=== PATIENT | female | born 1990 | race Caucasian/White ===

== ENCOUNTER → 2023-02-18 14:17 | Outpatient (BNVA) | payer OTHER, SELFPAY | PROVIDERS: PCP Hospitalist; Visit Provider Surgery ==

== ENCOUNTER 2023-02-18 15:36 | Outpatient (REF) | payer OTHER, SELFPAY | END 2023-02-18 15:37 | disposition home or self-care (01) | LOC: HO.LAB 15:36 | PROVIDERS: Visit Provider Surgery | DX: E11.22 Type 2 diabetes mellitus with diabetic chronic kidney disease (principal); N18.4 Chronic kidney disease, stage 4 (severe); N25.0 Renal osteodystrophy; F90.9 Attention-deficit hyperactivity disorder, unspecified type | CPT/HCPCS: 36415; 80053; 83036; 84134; 84443; 85025; 86140 ==

== ENCOUNTER 2023-03-08 14:46 | Outpatient (AMB) | payer OTHER, SELFPAY ==
--- NOTE | 2023-03-08 14:51 | A.OFFVIS_ITS ---
Intake VS Expanded 03/08/23 14:56 Height 5 ft 8 in Weight 241 lb 12.8 oz BMI 36.8 BP 131/61 Blood Pressure Location Rt brachial Blood Pressure Position Sitting Pulse 74 Pulse Source Pulse Oximeter Temp 96.7 F L Temperature Source Temporal Artery Scan Pulse Oximetry 98 Oxygen Delivery Method Room Air Body Fat 101.0 Body Fat Percentage 41.8 Free Fat Mass 140.6 Muscle Mass 133.6 Visceral Mass 9.0 Water Mass 101.0 BMR 1,985 Intake Visit Reasons: (OV) F/U Gastric Balloon Switch to SWL Allergies aspirin [ASPIRIN] Allergy (Unknown, Verified 03/08/23 14:54) UNKNOWN, bleeding HPI HPI Comments History of Present Illness Details The pt is a 32y woman who presents with a weight of 242.4/BMI 36.8 who reports a lifelong struggle with of obesity that got significantly worse after age 21. She was initially interested in gastric balloon, but ultimately decided to reenter the [facility] & is interested in LSG. Patient notes she was around 180 to 190 lb in high school, but after becoming , her weight increased to 285 lb wall and she was only able to drop down to about 270, . At previous visit with her PCP on 05/03/2022, she was 258 lb/BMI 39.2. The patient notes that she just lost her grandmother, who raised her, due to cirrhosis and diabetes related complications. Cirrhosis was due to fatty liver disease and diabetes, so the patient is 100% committed to entering the surgical weight loss program and is interested in sleeve gastrectomy. She lives with her daughter who is 2 years, 8 months. 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 She presents today at 241.8lbs/BMI 36.7. The patient states that she was told in high school that she had diabetes, so she assumed that it was type 1. However, she notes that she was never treated with insulin and his stopped following this health problem and did not disclose it to her PCP. Past surgical history includes an open appendectomy that was done in [place] Family history includes hypertension, type 2 diabetes and coronary artery disease; she is unaware of any history of malignancy, inflammatory bowel disease. GERD 0 ESS 0 QOL 113 JAYCE 5 Preop workup: [facility] classes X/[address] Labs see results H. pylori pending CXR pending Abd U/S pending UGI pending [facility] Surgical History Hx of appendectomy Family History Mother Hypertension Heart disease Maternal Grandmother Heart disease Social History Household Members: Children Household Members Other:: daughter Housing: House (duplex) Alcohol intake: current Alcohol intake frequency: holidays/special occasions only Patient Tobacco Use Status: Never used Tobacco e-Cigarette/Vaping Use: Never Used Current occupational status: employed Current occupation: [employer] coordinator Review of Systems Const All systems reviewed & are unremarkable except as noted in HPI and below Reports as per HPI Physical Exam On exam she is in good spirits She is anicteric She is in no acute respiratory distress Abdomen is obese & NT; and her right lower quadrant incision is well healed with no hernia that are obvious Results Reviewed Results Reviewed: labs 02/18/23 Hb 13.7, normal indices Plts 170K, wbc 4.8 Lytes WNL, BUN 14, Cr 0.84 LFTs WNL HbA1C 4.8 TSH WNL Prealbumin 26.0 Fasting labs pending diagnostic imaging pending Assessment & Plan Assessment & Plan (1) BMI 39.0-39.9,adult: Code(s): Z68.39 - Body mass index [BMI] 39.0-39.9, adult (2) Attention Deficit Hyperactivity Disorder (ADHD): Code(s): F90.9 - Attention-deficit hyperactivity disorder, unspecified type (3) DMII (diabetes mellitus, type 2): Code(s): E11.9 - Type 2 diabetes mellitus without complications Plan The patient expressed concerns regarding her grandmother's services and obesity, type 2 diabetes and vascular disease. She notes that there is a family history of obesity in her mother has cardiac and vascular issues so she would like to proceed with surgical weight loss. Handouts disclosing the importance of lean protein, high-fiber diet and removing carbohydrates and sugar sweetened beverages were reviewed. The ultimate goal of following the Mediterranean diet for an during weight loss after sleeve gastrectomy was discussed and her questions seemed to be satisfactorily answered. I reviewed the nonfasting labs from the last visit and was pleased to inform the patient that she does not seem to have either juvenile or adult onset diabetes since her hemoglobin A1c is 4.8. She had some concerns regarding her grandmother's from cirrhosis related to type 2 diabetes and obesity and, the patient's LFTs are normal. See orders; patient will follow-up with me 2-3 weeks after a [place] visit and will write down any questions that she has. Orders: Orders Vitamin B12 and Folate Today E11.9 - Type 2 diabetes mellitus without complications, F90.9 - Attention-deficit hyperactivity disorder, unspecified type, Z00.00 - Encounter for general adult medical examination without abnormal findings, Z68.39 - Body mass index [BMI] 39.0-39.9, adult Ferritin Today E11.9 - Type 2 diabetes mellitus without complications, F90.9 - Attention-deficit hyperactivity disorder, unspecified type, Z00.00 - Encounter for general adult medical examination without abnormal findings, Z68.39 - Body mass index [BMI] 39.0-39.9, adult IRON PROFILE Today E11.9 - Type 2 diabetes mellitus without complications, F90.9 - Attention-deficit hyperactivity disorder, unspecified type, Z00.00 - Encounter for general adult medical examination without abnormal findings, Z68.39 - Body mass index [BMI] 39.0-39.9, adult Lipid Panel Today E11.9 - Type 2 diabetes mellitus without complications, F90.9 - Attention-deficit hyperactivity disorder, unspecified type, Z00.00 - Encounter for general adult medical examination without abnormal findings, Z68.39 - Body mass index [BMI] 39.0-39.9, adult PTHI Today E11.9 - Type 2 diabetes mellitus without complications, F90.9 - Attention-deficit hyperactivity disorder, unspecified type, Z00.00 - Encounter for general adult medical examination without abnormal findings, Z68.39 - Body mass index [BMI] 39.0-39.9, adult Vitamin A Today E11.9 - Type 2 diabetes mellitus without complications, F90.9 - Attention-deficit hyperactivity disorder, unspecified type, Z00.00 - Encounter for general adult medical examination without abnormal findings, Z68.39 - Body mass index [BMI] 39.0-39.9, adult Vitamin B1 Today E11.9 - Type 2 diabetes mellitus without complications, F90.9 - Attention-deficit hyperactivity disorder, unspecified type, Z00.00 - Encounter for general adult medical examination without abnormal findings, Z68.39 - Body mass index [BMI] 39.0-39.9, adult Vitamin D 25-OH Total Today E11.9 - Type 2 diabetes mellitus without complications, F90.9 - Attention-deficit hyperactivity disorder, unspecified type, Z00.00 - Encounter for general adult medical examination without abnormal findings, Z68.39 - Body mass index [BMI] 39.0-39.9, adult Zinc Today E11.9 - Type 2 diabetes mellitus without complications, F90.9 - Atte ntion-deficit hyperactivity disorder, unspecified type, Z00.00 - Encounter for general adult medical examination without abnormal findings, Z68.39 - Body mass index [BMI] 39.0-39.9, adult ECG 12 lead EKG Today E11.9 - Type 2 diabetes mellitus without complications, F90.9 - Attention-deficit hyperactivity disorder, unspecified type, Z00.00 - Encounter for general adult medical examination without abnormal findings, Z68.39 - Body mass index [BMI] 39.0-39.9, adult FL upper GI w air Today E11.9 - Type 2 diabetes mellitus without complications, F90.9 - Attention-deficit hyperactivity disorder, unspecified type, Z00.00 - Encounter for general adult medical examination without abnormal findings, Z68.39 - Body mass index [BMI] 39.0-39.9, adult H Pylori Breath Test Today E11.9 - Type 2 diabetes mellitus without complications, F90.9 - Attention-deficit hyperactivity disorder, unspecified type, Z00.00 - Encounter for general adult medical examination without abnormal findings, Z68.39 - Body mass index [BMI] 39.0-39.9, adult US abdomen comp w elastography Today E11.9 - Type 2 diabetes mellitus without complications, F90.9 - Attention-deficit hyperactivity disorder, unspecified type, Z00.00 - Encounter for general adult medical examination without abnormal findings, Z68.39 - Body mass index [BMI] 39.0-39.9, adult XR chest 2V Today E11.9 - Type 2 diabetes mellitus without complications, F90.9 - Attention-deficit hyperactivity disorder, unspecified type, Z00.00 - Encounter for general adult medical examination without abnormal findings, Z68.39 - Body mass index [BMI] 39.0-39.9, adult Referrals Behavioral Health Referral E11.9 - Type 2 diabetes mellitus without complications, F90.9 - Attention-deficit hyperactivity disorder, unspecified type, Z68.39 - Body mass index [BMI] 39.0-39.9, adult Nutrition/Dietitian Referral E11.9 - Type 2 diabetes mellitus without complications, F90.9 - Attention-deficit hyperactivity disorder, unspecified type, Z68.39 - Body mass index [BMI] 39.0-39.9, adult Coding Level of Care Code Est Pt Level 4 (76127) Diagnoses BMI 39.0-39.9,adult Z68.39 Attention Deficit Hyperactivity Disorder (ADHD) F90.9 DMII (diabetes mellitus, type 2) E11.9
[2023-03-08 14:56] VITALS: BP 131/61; PULSE 74; TEMP 35.9; O2SAT 98; BMI 36.8
== END 2023-03-08 15:30 | disposition home or self-care (01) ==
LOC: HO.HBS 14:46
PROVIDERS: PCP Hospitalist; Visit Provider Surgery
DX: E66.09 Other obesity due to excess calories (principal); Z68.36 Body mass index [BMI] 36.0-36.9, adult; F90.9 Attention-deficit hyperactivity disorder, unspecified type; E11.9 Type 2 diabetes mellitus without complications
CPT/HCPCS: 99214

== ENCOUNTER → 2023-03-08 14:46 | Outpatient (BNVA) | payer OTHER, SELFPAY | PROVIDERS: PCP Hospitalist; Visit Provider Surgery | DX: Z68.39 Body mass index [BMI] 39.0-39.9, adult (principal); E11.9 Type 2 diabetes mellitus without complications; F90.9 Attention-deficit hyperactivity disorder, unspecified type; Z00.00 Encounter for general adult medical examination without abnormal findings ==

== ENCOUNTER 2023-03-19 14:30 | Outpatient (REF) | payer OTHER, SELFPAY ==
[2023-03-19 15:26] LABS: MANUAL DIFF FLAG NO
--- NOTE | 2023-03-19 15:26 | ECG_ITS ---
Test Reason : OBESITY Blood Pressure : / mmHG Vent. Rate : 068 BPM Atrial Rate : 068 BPM P-R Int : 188 ms QRS Dur : 074 ms QT Int : 402 ms P-R-T Axes : 073 036 035 degrees QTc Int : 427 ms Normal sinus rhythm with sinus arrhythmia Normal ECG No previous ECGs available Referred By: Eric Dhaliwal Electronically Signed By:AKBAR PURCELL
[2023-03-19 17:58] LABS: Basophils Percent Auto 0.7 % (0-2); Eosinophils Absolute Auto 0.1 X10*3/uL (0.0-0.4); Eosinophils Percent Auto 2.7 % (0-4); Hematocrit 41.4 % (37.0-47.0); Hemoglobin 13.5 g/dl (12.0-16.0); Imm Gran Abs Auto 0.01 X10*3/uL (0.00-0.03); Imm Gran Pct Auto 0.2 % (0.0-0.4); Lymphocytes Absolute Auto 2.4 X10*3/uL (1.2-4.9); Lymphocytes Percent Auto 54.4 % (20-40); Mean Corpuscular HGB Conc 32.6 g/dl (31.0-35.0); Mean Corpuscular Hemoglobin 28.4 pg (27.0-33.0); Mean Corpuscular Volume 87.2 fL (80.0-98.0); Mean Platelet Volume 12.3 fL (9.4-12.3); Monocytes Absolute Auto 0.2 X10*3/uL (0.1-1.2); Neutrophils Absolute Auto 1.6 x10*3/uL (2.0-8.3); Platelet Count 208 X10*3/uL (160-400); Red Blood Count 4.75 X10*6/uL (4.20-5.50); Red Cell Distribution Width 12.3 % (11.0-16.0); White Blood Count 4.4 X10*3/uL (4.8-10.8)
[2023-03-19 18:50] LABS: Alanine Aminotransferase 13 U/L (0-31); Albumin Level 4.1 g/dL (3.5-5.0); Alkaline Phosphatase 60 U/L (39-117); Anion Gap 15 (12-20); Aspartate Amino Transferase 13 U/L (5-31); Bilirubin Total 0.6 mg/dL (0.0-1.0); Blood Urea Nitrogen 10 mg/dL (9-16); C Reactive Protein 0.86 mg/dL (< or = 0.50); Calcium 9.3 mg/dL (8.4-10.2); Carbon Dioxide 20 mmol/L (22-29); Chloride 110 mmol/L (96-108); Cholesterol 193 mg/dL; Estimated Glomerular Filt Rate > 60; Glucose Random 69 mg/dL (60-115); HDL Cholesterol 42 mg/dL; Iron 79 mcg/dL (30-160); LDL Cholesterol Calculated 141 mg/dl; Percent Iron Saturation 29 % (15-50); Potassium 3.8 mmol/L (3.3-5.1); Sodium 141 mmol/L (135-145); Total Iron Binding Capacity 268 mcg/dL (228-428); Total Protein 7.2 g/dL (6.5-8.0); Triglycerides 52 mg/dL; Unsaturated Iron Binding 189 ug/dL
[2023-03-19 19:03] LABS: Folate 11.7 ng/mL (> or = 4.0); Vitamin B12 345 pg/mL (200-900)
[2023-03-19 19:07] LABS: Ferritin 54 ng/mL (10-122); TSH reflex Free T4 0.82 uIU/mL (0.32-4.0); Vitamin D 25-OH Total 21.9 ng/mL (>30)
[2023-03-20 05:21] LABS: Estimated Average Glucose 88 mg/dL; Hemoglobin A1c % 4.7 %
[2023-03-22 19:38] LABS: Calcium (PTHI) 8.9 mg/dL (8.6-10.2); PTHI 50 pg/mL (16-77)
[2023-03-25 12:13] LABS: Vitamin B1 9 nmol/L (8-30)
[2023-03-26 03:38] LABS: Vitamin A 41 mcg/dL (38-98)
== END 2023-03-19 14:31 | disposition home or self-care (01) ==
LOC: HO.LAB 14:30
PROVIDERS: Absent Provider Surgery; PCP Hospitalist; Visit Provider Counselor Mental Health
DX: F90.9 Attention-deficit hyperactivity disorder, unspecified type (principal); F43.20 Adjustment disorder, unspecified; E11.9 Type 2 diabetes mellitus without complications; Z00.00 Encounter for general adult medical examination without abnormal findings
CPT/HCPCS: 36415; 80053; 80061; 82306; 82607; 82728; 82746; 83036; 83540; 83970; 84134; 84425; 84443; 84590; 84630; 85025; 86140; 93005

== ENCOUNTER 2023-03-19 14:30 | Outpatient (AMB) | payer OTHER, SELFPAY ==
--- NOTE | 2023-03-19 14:40 | MHC.WMTHER ---
Intake Intake Visit Reasons: VIDEO Intake Allergies aspirin [ASPIRIN] Allergy (Unknown, Verified 03/08/23 14:54) UNKNOWN, bleeding PFSH Surgical History Hx of appendectomy Family History Mother Hypertension Heart disease Maternal Grandmother Heart disease Social History Household Members: Children Household Members Other:: daughter Housing: House (duplex) Alcohol intake: current Alcohol intake frequency: holidays/special occasions only Patient Tobacco Use Status: Never used Tobacco e-Cigarette/Vaping Use: Never Used Current occupational status: employed Current occupation: [employer] coordinator Behavioral Health Assessment Weight Management Therapy Therapy Notes Details Patient is looking to have weight loss surgery to help improve her health and quality of life. She started to be concerned about her health after her grandmother last month from diabetes complications. Pt was in therapy last year when she was going through a divorce but not currently. She has never been in medication or had issues with drugs or alcohol in the past. She has no history of inpatient psychiatric admissions or eating disorder diagnosis. Presenting Concerns Referral Source provider Reason for referral weight loss surgery evaluation Precipitating Event obesity Living Situation Current Living Situation Rent At risk of losing current housing? No Satisfied with current living situation? Yes Comments Pt lives with her alone with her 2 year old daughter. Food/Weight/Diet Expectations of change weight loss and maintenance History/Relationship with food Pt stated that she does not eat all day until 430 or 5 and then will snack until 9pm. She stated she would eat rice and beans everyday. History/Relationship with weight Pt stated that her weight started to become problematic after she gave . She was slightly overweight prior but then her weight was in the obese category. History/Relationship with dieting fasting, keto, low carb, smaller portions, lost 20lbs when she got and got down to 190lbs. exercise routine Binge Eating Do you frequently eat large amounts of food in short periods of time, not feeling physically hungry? No Do you feel out of control when you eat a large amount of food in a short period of time? No Do you eat large amounts of food rapidly and typically alone? Yes Night Eating Do you wake up at least once during the night to eat? No If you wake up in the night, do you find that it is necessary to eat something in order to fall back asleep? No Do you have little or no appetite in the morning and feel very hungry in the evening, often overeating between dinner and when you go to bed? Yes Social History Family history and relationship Pt was born and raised in [place] by her two mothers, she has siblings but not raised in her home. She stated that her mother came from to [place] and at times she was raised by her grandmother. Patient is and has a two year that she co parents with her ex . Parental/Familial frit mixer obligations 2 year old daughter Developmental history and status no issues Social support sister, mother Cultural/Ethnic information [place] and [place] Legal Involvement and History Current or historical involvement with the legal system? none Education Highest grade completed some college Preferred learning style Auditory, Verbal, Written, Learn by doing and Visual Currently enrolled in educational program? No Interested in further educational program? 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 No Financial Situation Describe current financial situation Comfortable Financial assistance? None Service Service? No Mental Health and Addiction Treatment Current/Past substance abuse? No Current/Past addictive behavior concerns? No Medical and Physical Health Summary Physical exam in the last year? No Pain Screening Current pain? No Medications Is the patient compliant with medications? Yes Does the patient have Blue Guardian in place? Not applicable Does the patient use complimentary health approaches? Yes Trauma/Abuse History History of trauma? Yes Assessment & Plan Assessment & Plan (1) Adjustment disorder, unspecified: Code(s): F43.20 - Adjustment disorder, unspecified (2) BMI 39.0-39.9,adult: Code(s): Z68.39 - Body mass index [BMI] 39.0-39.9, adult Plan Pt reported no significant mental health issues or disordered eating. She reported doing well at this time and will reach out as needed for additional support. She is cleared for surgery when ready. Telehealth Telehealth Location of provider rendering services: other Location of patient: other Patient Identification confirmed using: Name, : Yes Telehealth method: voice only (Patient showed up in office thinking this appt was in person. ) Patient verbally consented to treatment: Yes Patient verbally consented to billing insurance company: Yes Patient informed of any privacy concerns related to visit: Yes Minutes spent on Phone/Video with Pt.: 45 Coding Level of Care Code Tele Psy Diag Valerieal ([id number]) Diagnoses Adjustment disorder, unspecified F43.20 BMI 39.0-39.9,adult Z68.39 Time Spent (min) 45
== END 2023-03-19 15:06 | disposition home or self-care (01) ==
LOC: HO.HBST 14:58
PROVIDERS: PCP Hospitalist; Visit Provider Counselor Mental Health
DX: F43.20 Adjustment disorder, unspecified (principal); Z68.39 Body mass index [BMI] 39.0-39.9, adult
CPT/HCPCS: 90791

== ENCOUNTER → 2023-03-19 15:26 | Outpatient (BNV) | payer OTHER, SELFPAY | PROVIDERS: Absent Provider Surgery; PCP Hospitalist; Visit Provider Internal Medicine | DX: E66.9 Obesity, unspecified (principal); F43.20 Adjustment disorder, unspecified | CPT/HCPCS: 93010 ==

== ENCOUNTER 2023-04-02 13:49 | Outpatient (AMB) | payer OTHER, SELFPAY ==
--- NOTE | 2023-04-02 13:49 | A.OFFVIS_ITS ---
Intake Intake Visit Reasons: VIDEO F/U [facility] Supervisor General Required: No Allergies aspirin [ASPIRIN] Allergy (Unknown, Verified 03/08/23 14:54) UNKNOWN, bleeding HPI HPI Comments History of Present Illness Details Telehealth Location of provider rendering services: practice address [address], [place] Location of patient: address on file Patient Identification confirmed using: Name, : Yes Telehealth method: video Patient verbally consented to treatment: Yes Patient verbally consented to billing insurance company: Yes Patient informed of any privacy concerns related to visit: Yes The pt is a 32y woman who presents with a weight of 242.4/BMI 36.8 who reports a lifelong struggle with of obesity that got significantly worse after age 21. She was initially interested in gastric balloon, but ultimately decided to reenter the [facility] & is interested in LSG. Patient notes she was around 180 to 190 lb in high school, but after becoming , her weight increased to 285 lb wall and she was only able to drop down to about 270, . At previous visit with her PCP on 05/03/2022, she was 258 lb/BMI 39.2. The patient requested telehealth visit today because of childcare issues. The patient states that she was 239 lb on Saturday03/31/23 but does not have a weight for today. This represents a 4 lb weight loss. She is not currently exercising, but did note a willingness to walk or use exercise videos. She purchased or gain, organic plant based protein powder and voiced concern over the carbohydrates and also flavor; she is not tolerating it and asked for recommendation for a different product. She asked about premier protein which she is seen in several local stores and is interested in transitioning to this product. The patient notes that she just lost her grandmother who raised her, earlier this year due to cirrhosis and diabetes related complications. Cirrhosis was due to fatty liver disease and diabetes, so the patient is 100% committed to entering the surgical weight loss program and is interested in sleeve gastrectomy. She lives with her daughter who is 2 years, 8 months. 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 She presents today at 241.8lbs/BMI 36.7. The patient states that she was told in high school that she had diabetes, so she assumed that it was type 1. However, she notes that she was never treated with insulin and his stopped following this health problem and did not disclose it to her PCP. Past surgical history includes an open appendectomy that was done in [place] Family history includes hypertension, type 2 diabetes and coronary artery disease; she is unaware of any history of malignancy, inflammatory bowel disease. GERD 0 ESS 0 QOL 113 JAYCE 5 Preop workup: [facility] classes X/8 BH cleared 03/19/23 RD pending Labs see results H. pylori pending CXR pending Abd U/S pending UGI pending EKG 03/19/23 NSR [facility] Medical History (Updated 04/02/23 @ 14:44 by Eric Dhaliwal MD) DMII (diabetes mellitus, type 2) Surgical History Hx of appendectomy Family History Mother Hypertension Heart disease Maternal Grandmother Heart disease Social History Household Members: Children Household Members Other:: daughter Housing: House ([facility]) Alcohol intake: current Alcohol intake frequency: holidays/special occasions only Patient Tobacco Use Status: Never used Tobacco e-Cigarette/Vaping Use: Never Used Current occupational status: employed Current occupation: [employer] coordinator Review of Systems Const All systems reviewed & are unremarkable except as noted in HPI and below Physical Exam By video, the patient is in good spirits She is in no acute distress Results Reviewed Results Reviewed: Labs 03/19/2023 Hemoglobin 13.5 with normal indices; white blood cell count 4.4, platelet count 208K BUN 10/creatinine 0.78 CRP elevated at 0.86 Pre-albumin low normal at 26 point 0 Lipid show a cholesterol of 193,TAG 52 Vitamin-D deficiency is noted B1, B12, folate and iron studies within normal parameters Diagnostic imaging is pending Assessment & Plan Assessment & Plan (1) BMI 39.0-39.9,adult: Code(s): Z68.39 - Body mass index [BMI] 39.0-39.9, adult (2) Attention Deficit Hyperactivity Disorder (ADHD): Code(s): F90.9 - Attention-deficit hyperactivity disorder, unspecified type (3) Vitamin D deficiency: Code(s): E55.9 - Vitamin D deficiency, unspecified Plan The patient has not originally purchased or gain protein, but does not care for the taste. She was interested in using primary are premade protein shakes. She has been advised to begin 3 protein shakes, substituting 1 at breakfast, 1 at lunch and 1 at 3:30pm. She will purchase vitamin D3, 2000 IU and begin supplementing. The patient will look at her schedule, but at this time, is interested in having her meal at dinner. Ten forkfuls of lean protein and 10 forkfuls of vegetables are recommended for dinner. Patient notes that she is not currently exercising but noted that willingness to try walking every other day for 20 minutes at a time. We did review the importance of exercise and proper diet regarding weight loss. Preop Bariatric Plan 1.?? Nutritional counseling: You can adjust the timing of the shakes to fit your schedule; alternately, if you prefer to be your meal at lunch time, replace dinner with a protein shake. Start with 3 Premier Protein shakes, premixed ([employer], [employer], [employer]) First shake 8am-10am Lunch shake 11am-1pm Dinner at 5pm (10 forks of protein and 10 forks of salad/vegetables). Meal to include lean meat (beef, fish, pork, turkey, chicken), cooked vegetables or a salad with olive oil and/or fruits (berries, pears, apples, kiwi). Avoid breads, potatoes, starches, rice, pasta, desserts. Try to drink 64 oz of water daily and avoid soda and juices. ?2. Each shake would be drunk slowly, like coffee in a period of 2 hours. ?3. I emphasized the importance of measuring accurately the food portion and measure it carefully when serving the food on the plate ?4. The meal portions include 10 full-size forks of meat and 10 full-size forks of salad/vegetables. You should always eat the meat portion but you can skip up to half of the forks of salad/vegetables. ?5. One full-size fork is what can be scooped on the fork without falling aside and not what can be bit with the fork. Use regular forks like those you find in a typical restaurant. ?6.? Please send me weight measurements as soon as possible and then once a week. Always include your diet and exercise plan. Alternatively come weekly at the office for weight checks and send me the measurements. ?7. Exercise counseling:? Begin by watching a stretching for beginner?s video.? Start slowly and begin to stretch your muscles.? You should do this before and after each exercise session to prevent injury.? Please use the exercise equipment at your building. Start elliptical with a resistance of 2. Increase resistance by 1 every 3 min to your most comfortable resistance with a max resistance of 8.? Reduce the resistance by 1 every 3 minutes back down to 2 and repeat cycles for 300 calories. Alternatively, start treadmill with a speed of 3.0 and incline of 0, increasing incline by 1 every 3 minutes to the highest comfortable level (max 6 for now) then decrease in the same fashion.? Repeat process to a goal of 300 calories.? Goal of 2000 calories burned or more weekly.? You may also consider use of the stationary bike.? The easiest would be to choose the fat-burn or interval training program on the machine and do this until you reach the 300 calorie goal.? Alternatively, you can manually adjust the resistance in a similar fashion as mentioned above, (resistance of 2-8 with a goal speed of 12 mph).?Tracking calories is essential. 9. Alternatively, start walking outside daily, tracking calories with a goal of 300 calories per day, daily. If [id number] is needed, you can start there, but the goal is DAILY. You can download the sandra?[employer]?which can track your time, distance and calories while walking outside.? You press start in the sandra when you start and then stop when you are finished. ? 10.? It is important to avoid and for at least 18 months postoperatively and it has been discussed at the information session 11. Please get labs, EKG and chest X-Ray within 1 week. 12. Discussed and answered all questions regarding?obtained consent to participate in the [facility]?Registry. 13. Please follow the diet plan exactly, without any change.? If you do not like something about the plan or you feel hungry, you need to communicate with me so I can help you revise the plan.? You should not change the plan yourself. 14. Goal is to lose 1.5-2.0 lbs/week 15. Goal is to lose 10% of your weight before surgery, which is about 24 lbs. Ultimate weight goal: 218 lbs before surgery IF YOU EXPERIENCE PAIN, SEVERE SHORTNESS OF BREATH, DIZZINESS OR LIGHTHEADEDNESS, OR SIGNIFICANT CONSTIPATION OR DIARRHEA, (DIARRRHEA CAN OCCUR FROM SOME ARTIFICIAL SWEETENERS) PLEASE NOTIFY THE OFFICE! Coding Level of Care Code Est Pt Level 4 (33622) Diagnoses BMI 39.0-39.9,adult Z68.39 Attention Deficit Hyperactivity Disorder (ADHD) F90.9 Vitamin D deficiency E55.9
== END 2023-04-02 14:53 | disposition home or self-care (01) ==
LOC: HO.HBS 13:49
PROVIDERS: PCP Hospitalist; Visit Provider Surgery
DX: E66.9 Obesity, unspecified (principal); Z68.36 Body mass index [BMI] 36.0-36.9, adult
CPT/HCPCS: 99214

== ENCOUNTER → 2023-04-02 13:49 | Outpatient (BNVA) | payer OTHER, SELFPAY | PROVIDERS: PCP Hospitalist; Visit Provider Surgery ==

== ENCOUNTER → 2023-04-08 13:00 | Outpatient (BNVA) | payer OTHER, SELFPAY | PROVIDERS: PCP Hospitalist; Visit Provider Dietitian, Registered | DX: E66.9 Obesity, unspecified (principal); Z68.35 Body mass index [BMI] 35.0-35.9, adult; E11.9 Type 2 diabetes mellitus without complications; Z71.3 Dietary counseling and surveillance | CPT/HCPCS: 97802 ==

== ENCOUNTER → 2023-04-23 12:34 | Outpatient (BNVA) | payer OTHER, SELFPAY | PROVIDERS: PCP Hospitalist; Visit Provider Surgery ==

== ENCOUNTER 2023-04-24 10:50 | Outpatient (AMB) | payer OTHER, SELFPAY ==
[2023-04-24 10:52] VITALS: BMI 35.6
--- NOTE | 2023-04-24 10:52 | A.OFFVIS_ITS ---
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 Information Interpreted: clinical only Allergies aspirin [ASPIRIN] Allergy (Unknown, Verified 04/24/23 10:53) UNKNOWN, bleeding HPI HPI Comments History of Present Illness Details Telehealth Location of provider rendering services: practice address [address], [place] Location of patient: address on file Patient Identification confirmed using: Name, : Yes Telehealth method: video Patient verbally consented to treatment: Yes Patient verbally consented to billing insurance company: Yes Patient informed of any privacy concerns related to visit: Yes Pt noted she was at work today for her televisit & on-break. The pt is a 32y woman who presents with a weight of 242.4/BMI 36.8 02/18/23 who reports a lifelong struggle with of obesity that got significantly worse after age 21. She was initially interested in gastric balloon, but ultimately decided to reenter the [facility] & is interested in LSG. Patient notes she was around 180 to 190 lb in high school, but after becoming , her weight increased to 285 lb wall and she was only able to drop down to about 270, . At previous visit with her PCP on 05/03/2022, she was 258 lb/BMI 39.2. The patient requested telehealth visit today because of childcare issues. The patient reports a weight of 234 lb/BMI 35.6 today's televisit on 04/24/23. This represents a 5 lb weight loss. She is not currently exercising, but did note a willingness to walk or use exercise videos. She purchased or gain, organic plant based protein powder and voiced concern over the carbohydrates and also flavor; she is not tolerating it and asked for recommendation for a different product. She asked about premier protein which she is seen in several local stores and is interested in transitioning to this product. The patient notes that she just lost her grandmother who raised her, earlier this year due to cirrhosis and diabetes related complications. Cirrhosis was due to fatty liver disease and diabetes, so the patient is 100% committed to entering the surgical weight loss program and is interested in sleeve gastrectomy. She lives with her daughter who is 2 years, 8 months. 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 The patient states that she was told in high school that she had diabetes, so she assumed that it was type 1. However, she notes that she was never treated with insulin and his stopped following this health problem and did not disclose it to her PCP. Past surgical history includes an open appendectomy that was done in [place] Family history includes hypertension, type 2 diabetes and coronary artery disease; she is unaware of any history of malignancy, inflammatory bowel disease. GERD 0 ESS 0 QOL 113 JAYCE 5 Preop workup: SWL classes X/8 BH cleared 03/19/23 RD pending Labs see results H. pylori pending CXR pending Abd U/S pending UGI pending EKG 03/19/23 NSR Meal plan: Premier protein 2 premade shakes (pt request due to convenience) 1 Zone Perfect bar Dinner: 10 forks protein/10 forks vegetable (poor compliance per pt) Pt notes she isn't consistently following the diet and does not follow any diet on weekend eating whatever is served at family gatherings Exercise plan: not exercising PFSH Medical History DMII (diabetes mellitus, type 2) Surgical History Hx of appendectomy Family History Mother Hypertension Heart disease Maternal Grandmother Heart disease Social History Household Members: Children Household Members Other:: daughter Housing: House ([facility]) Alcohol intake: current Alcohol intake frequency: holidays/special occasions only Patient Tobacco Use Status: Never used Tobacco e-Cigarette/Vaping Use: Never Used Current occupational status: employed Current occupation: [employer] coordinator Physical Exam Vital Signs: BMI result Body Mass Index 35.6 Results Reviewed Results Reviewed: Labs 03/19/2023 Hemoglobin 13.5 with normal indices; white blood cell count 4.4, platelet count 208K BUN 10/creatinine 0.78 CRP elevated at 0.86 Pre-albumin low normal at 26 point 0 Lipid show a cholesterol of 193,TAG 52 Vitamin-D deficiency is noted B1, B12, folate and iron studies within normal parameters Diagnostic imaging is pending Assessment & Plan Assessment & Plan (1) BMI 39.0-39.9,adult: Code(s): Z68.39 - Body mass index [BMI] 39.0-39.9, adult (2) Vitamin D deficiency: Code(s): E55.9 - Vitamin D deficiency, unspecified (3) Adjustment disorder, unspecified: Code(s): F43.20 - Adjustment disorder, unspecified (4) Normal physical exam: Code(s): Z00.00 - Encounter for general adult medical examination without abnormal findings (5) Attention Deficit Hyperactivity Disorder (ADHD): Code(s): F90.9 - Attention-deficit hyperactivity disorder, unspecified type Plan A total of 27 minutes was spent both on video in reviewing records/meal & exercise plan. The patient noted candidly that she is disappointed in herself and her performance since she is not following the diet. She is in that she would be ready for surgery by now. She requested a new meal plan which will include: Prenier pre-mixed protein shakes (pt request) for brkfst & lunch Ten forks protein/vegetable at dinner Zone Perfect protein bar after dinner as a snack The pt noted she will refocus her exercise efforts & requested in in-office follow-up visit in 3 weeks to give her a chance to work on the new diet and exercise. Exercise plan: pt notes she should be able to walk on weekends, but notes difficulty during the week for family & work reasons. I explained that the lack of commitment to regular exercise will impair weight loss & she acknowledged this fact. We also discussed her recent family (her grandmother, who raised her) and possible need for grief counseling and causing in the program until she has been assessed for this. She declined. Will ask for input from Nevaeh in . The importance of proper/healthy diet and increased activity to optimize surgical weight loss or any weight loss intervention including medication, gastric balloon or surgical intervention was again discussed with the patient. Weight regain with poor dietary choices and lack of exercise was again discussed with the patient and apparently understood. The patient will reach out with any questions regarding her new meal plan and exercise, otherwise she will follow-up with me for 45 minute visit in the office in 3 weeks. Telehealth Telehealth Location of provider rendering services: practice address Location of patient: address on file Patient Identification confirmed using: Name, : Yes Telehealth method: video Patient verbally consented to treatment: Yes Patient verbally consented to billing insurance company: Yes Patient informed of any privacy concerns related to visit: Yes Minutes spent on Phone/Video with Pt.: 21 Coding Level of Care Code Tele Est Pt Level 4 (36431) Diagnoses BMI 39.0-39.9,adult Z68.39 Vitamin D deficiency E55.9 Adjustment disorder, unspecified F43.20 Normal physical exam Z00.00 Attention Deficit Hyperactivity Disorder (ADHD) F90.9
== END 2023-04-24 11:52 | disposition home or self-care (01) ==
LOC: HO.HBS 10:50
PROVIDERS: PCP Hospitalist; Visit Provider Surgery
DX: E66.09 Other obesity due to excess calories (principal); Z68.35 Body mass index [BMI] 35.0-35.9, adult; E55.9 Vitamin D deficiency, unspecified; F43.20 Adjustment disorder, unspecified; F90.9 Attention-deficit hyperactivity disorder, unspecified type
CPT/HCPCS: 99214

== ENCOUNTER → 2023-04-24 10:50 | Outpatient (BNVA) | payer OTHER, SELFPAY | PROVIDERS: PCP Hospitalist; Visit Provider Surgery ==